=== PATIENT | female | born 1970 | race Caucasian/White ===

== ENCOUNTER 2019-04-23 20:35 | Emergency (ER) | payer SELFPAY ==
[~2019-04-23] VITALS: Ht 175 cm; Wt 56.8 kg
[2019-04-23] MEDS ORDERED: DOXYCYCLINE 100 MG (VIBRAMYCIN) TABLET PO SCH (21:30)
[2019-04-23] MEDS ORDERED: TRIM/SULFAMETH 160/800 (SEPTRA DS) TAB PO ONE (21:30)
[2019-04-23] MEDS ORDERED: HYDROcodone/APAP 5 MG/325 MG (LORTAB) TAB PO ONE (21:30)
[2019-04-23 21:55] LABS: BASOPHILS # (AUTO) 0.1 10^3/uL (0.0-0.1); BASOPHILS % (AUTO) 1 % (0-10); EOSINOPHILS # (AUTO) 0.4 10^3/uL (0.0-0.3); EOSINOPHILS % (AUTO) 3 % (0-10); HEMATOCRIT 30 % (35-52); HEMOGLOBIN 9.8 G/DL (11.5-16.0); LYMPHOCYTES # (AUTO) 2.4 X 10^3 (1.0-4.0); LYMPHOCYTES % (AUTO) 23 % (12-44); MEAN CORPUSCULAR HEMOGLOBIN 32 PG (25-34); MEAN CORPUSCULAR HGB CONC 33 G/DL (32-36); MEAN CORPUSCULAR VOLUME 96 FL (80-99); MEAN PLATELET VOLUME 9.6 FL (7.4-10.4); MONOCYTES # (AUTO) 0.8 X 10^3 (0.0-1.0); MONOCYTES % (AUTO) 8 % (0-12); NEUTROPHILS # (AUTO) 6.9 X 10^3 (1.8-7.8); NEUTROPHILS % (AUTO) 65 % (42-75); PLATELET COUNT 290 10^3/uL (130-400); RED CELL DISTRIBUTION WIDTH 13.6 % (10.0-14.5); WHITE BLOOD COUNT 10.6 10^3/uL (4.3-11.0)
--- NOTE | 2019-04-23 22:23 | ED Lower Extremity ---
General Chief Complaint: Lower Extremity Stated Complaint: LEFT AND RIGHT FEET PAIN,REDNESS,SWELLING Nursing Triage Note: Patient states that her ankles and feet turned red and started to swell yesterday. Bilateral ankles are bright red and swollen. Patient rates her pain at a 9. She denies any injury to the area but states that she was bitten by a tick on the right ankle a while ago. Nursing Sepsis Screen: No Definite Risk History of Present Illness Date Seen by Provider: Apr 23, 2019 Time Seen by Provider: 20:45 Initial Comments The patient is a 48-year-old female with a history of Crohn's disease on mesalamine and not on any immunosuppressant/disease modifying medications. She presents with concern for acute onset of erythema and tenderness and swelling affecting the left greater than right ankle and foot with onset over the past few days. Symptoms occur in the setting of recent cleanout of a "hoarder's" house over the past 2-3 weeks. Patient states she has been doing heavy work cleaning the basement of the house in question. Scattered abrasions are noted to her bilateral distal lower extremities which she states predated the redness and swelling. No associated fevers, nausea or vomiting or other systemic symptoms. Patient is complaining of significant pain to the ankles. Patient does note that a couple of weeks ago she noticed a tick on her right ankle which she then removed. She has not had any unusual rashes to the area or elsewhere on her body. Allergies and Home Medications Allergies Coded Allergies: No Known Drug Allergies (Unverified , 04/23/19) Home Medications Doxycycline Hyclate 100 Mg Tablet, 100 MG PO BID Prescribed by: NENA ROGERS on 04/23/192226 Hydrocodone/Acetaminophen 1 Each Tablet, 1 TAB PO Q4-6HR Prescribed by: NENA ROGERS on 04/23/192226 Sulfamethoxazole/Trimethoprim 1 Each Tablet, 1 TAB PO BID Prescribed by: NENA ROGERS on 04/23/192226 Patient Home Medication List Home Medication List Reviewed: Yes Review of Systems Constitutional: see HPI All Other Systems Reviewed Negative Unless Noted: Yes Past Dvhtokl-Fhtxpq-Fbrgnp Hx Past Med/Social Hx: Reviewed Nursing Past Med/Soc Hx Patient Social History Recent Foreign Travel: No Contact w/Someone Who Travel: No Recent Infectious Disease Expo: No Family Medical History Reviewed Nursing Family Hx Physical Exam Vital Signs Vital Signs - First Documented 04/23/19 20:40 Temp 36.3 Pulse 94 Resp 18 B/P (MAP) 105/54 (71) Pulse Ox 97 O2 Delivery Room Air Capillary Refill : Less Than 3 Seconds Height, Weight, BMI Height: '" Weight: lbs. oz. kg; 18.00 BMI Method: General Appearance: no apparent distress This is an older female appearing nontoxic and in no acute distress. Head is normocephalic and atraumatic. Neck is supple and nontender. Oropharynx is moist. Lungs are clear to auscultation in all stations. There is a normal S1 and S2 without rubs or gallops and capillary refill is appropriate, less than 2 seconds globally. Abdomen is soft, nontender and nondistended. Skin is warm and dry without cyanosis, clubbing or edema. Psychiatrically, the patient in a straight appropriate mood and affect and is alert. Examination of the bilateral lower extremities is remarkable for erythema and swelling to the bilateral ankles and dorsal feet, worse on the left than the right. No lymphangitic streaking is noted proximally. No pain with ranging of any joints of the bilateral lower extremities except the ankles and there is no joint irritability to the ankles and patient does have full active and passive range of motion at the ankles. Bilateral lower extremities are neurovascularly intact with strength 5 out of 5, sensation intact to light touch in all nerve distributions, DP and PT pulses 2+, capillary refill less than 2 seconds, feet warm and well perfused. Progress/Results/Core Measures Results/Orders Lab Results Laboratory Tests Test 04/23/19 21:41 Range/Units White Blood Count 10.6 4.3-11.0 10^3/uL Red Blood Count 3.09 L 4.35-5.85 10^6/uL Hemoglobin 9.8 L 11.5-16.0 G/DL Hematocrit 30 L 35-52 % Mean Corpuscular Volume 96 80-99 FL Mean Corpuscular Hemoglobin 32 25-34 PG Mean Corpuscular Hemoglobin Concent 33 32-36 G/DL Red Cell Distribution Width 13.6 10.0-14.5 % Platelet Count 290 130-400 10^3/uL Mean Platelet Volume 9.6 7.4-10.4 FL Neutrophils (%) (Auto) 65 42-75 % Lymphocytes (%) (Auto) 23 12-44 % Monocytes (%) (Auto) 8 0-12 % Eosinophils (%) (Auto) 3 0-10 % Basophils (%) (Auto) 1 0-10 % Neutrophils # (Auto) 6.9 1.8-7.8 X 10^3 Lymphocytes # (Auto) 2.4 1.0-4.0 X 10^3 Monocytes # (Auto) 0.8 0.0-1.0 X 10^3 Eosinophils # (Auto) 0.4 H 0.0-0.3 10^3/uL Basophils # (Auto) 0.1 0.0-0.1 10^3/uL Sodium Level 140 135-145 MMOL/L Potassium Level 4.0 3.6-5.0 MMOL/L Chloride Level 106 98-107 MMOL/L Carbon Dioxide Level 24 21-32 MMOL/L Anion Gap 10 5-14 MMOL/L Blood Urea Nitrogen 13 7-18 MG/DL Creatinine 0.62 0.60-1.30 MG/DL Estimat Glomerular Filtration Rate > 60 BUN/Creatinine Ratio 21 Glucose Level 103 70-105 MG/DL Calcium Level 9.3 8.5-10.1 MG/DL Corrected Calcium 9.5 8.5-10.1 MG/DL Total Bilirubin 0.2 0.1-1.0 MG/DL Aspartate Amino Transf (AST/SGOT) 13 5-34 U/L Alanine Aminotransferase (ALT/SGPT) 10 0-55 U/L Alkaline Phosphatase 89 40-136 U/L Total Protein 6.5 6.4-8.2 GM/DL Albumin 3.8 3.2-4.5 GM/DL My Orders Orders - NENA ROGERS MD Cbc With Automated Diff (04/23/19 21:17) Comprehensive Metabolic Panel (04/23/19 21:17) Hydrocodone/Apap 5/325 Tablet (Lortab 5 (04/23/19 21:30) Doxycycline Hyclate Tablet (Vibramycin T (04/23/19 21:30) Sulfamethoxazole/Trimet Ds Tab (Bactrim (04/23/19 21:30) Medications Given in ED Current Medications Medications Dose Ordered Sig/Taylor Route Start Time Stop Time Status Last Admin Dose Admin Acetaminophen/ Hydrocodone Bitart 2 tab ONCE ONCE PO 04/23/19 21:30 04/23/19 21:31 DC 9/29/19 21:43 2 TAB Trimethoprim/ Sulfamethoxazole 1 ea ONCE ONCE PO 04/23/19 21:30 04/23/19 21:31 DC 04/23/19 21:43 1 EA Vital Signs/I&O 04/23/19 20:40 Temp 36.3 Pulse 94 Resp 18 B/P (MAP) 105/54 (71) Pulse Ox 97 O2 Delivery Room Air Blood Pressure Mean: 71 Progress Progress Note : Time: 22:23 Progress Note Clinical examination consistent with a likely cellulitis of the bilateral lower extremities distally in the setting of abrasions from heavy cleanout work which have likely provided a pathway for bacteria to enter. Tetanus up-to-date. We'll check basic labs and cover with Bactrim as well as doxycycline which will also provide some coverage for tickborne illness although low suspicion for tickborne disease as a cause for patient's acute symptoms. We will treat pain with [place]. We will then reevaluate. Update 2240: Patient feeling quite a bit better after medication for discomfort here in the emergency department. Basic labs are unremarkable and reassuring. We will proceed with discharge home at this time with prescriptions for antibiotics and pain medication as noted above. We'll avoid NSAIDs given Crohn's diagnosis. Patient is to follow-up tomorrow as already scheduled with her primary care physician where she lives in [place] and understands if she feels worse is that of better or develops other new symptoms of concern that she needs to present to care immediately for reevaluation. All questions are answered. Patient is counseled not to drive, operate machinery or work while using narcotic pain medication. She understands and agrees. Departure Impression Primary Impression: Cellulitis of left leg Additional Impression: Cellulitis of right leg Disposition: HOME, SELF-CARE Condition: Improved Departure-Patient Inst. Patient Instructions: Cellulitis and Erysipelas (Skin Infections) Add. Discharge Instructions: Follow-up tomorrow as scheduled with her primary care physician in the clinic. Use the pain medication as instructed for your symptoms and do not drive or operate machinery or work while using the pain medication. Take the antibiotics until they are gone. Return immediately to the emergency department if symptoms worsen or if other new symptoms of concern develop. Scripts Doxycycline Hyclate (Doxycycline Hyclate) 100 Mg Tablet 100 MG PO BID for 10 Days, #20 TAB 0 Refills Prov: NENA ROGERS MD 04/23/19 Sulfamethoxazole/Trimethoprim (Bactrim Ds Tablet) 1 Each Tablet 1 TAB PO BID for 10 Days, #20 TAB Prov: NENA ROGERS MD 04/23/19 Hydrocodone/Acetaminophen ([place] 5-325 Tablet) 1 Each Tablet 1 TAB PO Q4-6HR for Pain MDD 10 TABS for 7 Days, #11 TAB Prov: NENA ROGERS MD 04/23/19 NENA ROGERS MD Apr 23, 2019 22:23
[2019-04-23] MEDS ORDERED: HYDR-4226 PO (22:27)
[2019-04-23] MEDS ORDERED: DOXY100T2 PO (22:27)
[2019-04-23] MEDS ORDERED: SULF1TAB35 PO (22:27)
[2019-04-23 22:42] LABS: SODIUM 140 MMOL/L (135-145)
[2019-04-23 22:43] LABS: ALANINE AMINOTRANSFERASE 10 U/L (0-55); ALBUMIN 3.8 GM/DL (3.2-4.5); ALKALINE PHOSPHATASE 89 U/L (40-136); BILIRUBIN,TOTAL 0.2 MG/DL (0.1-1.0); BUN/CREATININE RATIO 21; CALCIUM 9.3 MG/DL (8.5-10.1); CARBON DIOXIDE 24 MMOL/L (21-32); CHLORIDE 106 MMOL/L (98-107); CREATININE SERUM 0.62 MG/DL (0.60-1.30); GFR ESTIMATED > 60; GLUCOSE 103 MG/DL (70-105); TOTAL PROTEIN 6.5 GM/DL (6.4-8.2)
[2019-04-23 22:52] VITALS: BP 103/58
== END 2019-04-23 22:52 | disposition home or self-care (01) ==
LOC: ER FS 20:38
DX: L03.115 Cellulitis of right lower limb (principal); L03.116 Cellulitis of left lower limb; Z87.19 Personal history of other diseases of the digestive system
CPT/HCPCS: 36415; 80053; 85025